=== PATIENT | male | born 1960 | race Caucasian/White ===

== ENCOUNTER 2018-05-05 09:45 | Inpatient (IN) ==
[~2018-05-05 09:45] MED LIST: Bacitracin 50,000 UNIT, Polymyxin B Sulfate 500,000 UNIT, Sodium Chloride IRRigation 1,... IR ONE; Vancomycin 1,750 MG in 0.9 % Sodium Chloride 250 ML IVPB ONE
[2018-05-05] MEDS ORDERED: Ringers Solution, Lactated 1,000 ML IVC SCH (10:15)
--- NOTE | 2018-05-05 10:18 | Anesthesia Evaluation PreOp ---
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 HX Other Medical History: Hepatic (hepatitis--unsure of type) Anesthesia History: No Prior Anesthetic Complications, Past Anesthesia Alcohol Use: heavy (2-5 beers daily) Drug use: none Medications and Allergies Diclofenac Sodium [Voltaren] 1 appl TP QID PRN 05/05/18 [History] Gabapentin 1,200 mg PO BID 05/05/18 [History] Gabapentin 600 mg PO QAM 05/05/18 [History] Naproxen Sodium [Aleve] 220 mg PO Q12H PRN 05/05/18 [History] OxyCODONE/APAP 5/325 [Percocet 5/325 MG] 1 tab PO Q8HR PRN 05/05/18 [History] Allergy/AdvReac Type Severity Reaction Status Date / Time Bee Pollen Allergy Anaphylaxis Verified 04/28/18 15:22 - Meds/Allergy Pre-op Review Medications Reviewed: Yes Allergies Reviewed: Yes Beta Blockers on Current Med List: No Anesthesia Results - Labs Laboratory Tests 04/25/18 04/25/18 04/25/18 10:58 10:58 10:58 WBC 9.3 Hgb 14.4 Hct 43.7 Plt Count 235 PT 9.7 INR 0.9 APTT 33.1 Sodium 138 Potassium 4.1 BUN 16 Creatinine 0.82 - Imaging EKG: report reviewed (04/25/2018 SINUS RHYTHM WITH OCCASIONAL VENTRICULAR PREMATURE COMPLEXES POSSIBLE RIGHT VENTRICULAR CONDUCTION DELAY ST DEVIATION AND MODERATE T-WAVE ABNORMALITY, CONSIDER ANTEROLATERAL ISCHEMIA) Anesthesia Exam O2 Sat Height 1.8 m Weight 108.409 kg O2 Sat by Pulse Oximetry 98 Vital Signs Temp Pulse Resp BP Pulse Ox 98.5 F 71 18 144/86 98 05/05/18 10:05 05/05/18 10:05 05/05/18 10:05 05/05/18 10:05 05/05/18 10:05 Height: 5'11'' Weight: 239 lbs NPO (# of Hours): 8 Pain Scale: 0 Pain Scale Used: Numeric (1 - 10) - HEENT Pupil (Motor): EOMI Mallampati: II Teeth: Edentulous Oral Opening: Greater than 3 - 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
[2018-05-05] MEDS ORDERED: *HR* FentaNYL (PF) 100 MCG/2 ML VIAL ONE (10:31)
[2018-05-05] MEDS ORDERED: *HR* Midazolam HCl 2 MG/2 ML VIAL ONE ×2 (10:31→12:04)
[2018-05-05] MEDS ORDERED: Heparin 1,000 UNITS/500 mL 500 ML ONE (10:32)
[2018-05-05] MEDS ORDERED: Ondansetron 4 MG/2 ML VIAL ONE (10:32)
[2018-05-05] MEDS ORDERED: *HR* Propofol 200 MG/20 ML VIAL IVP ONE ×3 (10:32→15:17)
[2018-05-05] MEDS ORDERED: *HR* Succinylcholine 200 MG/10 ML VIAL IVP ONE (10:32)
[2018-05-05] MEDS ORDERED: Propofol 500 MG/50 ML INFUS..BTL ONE (10:32)
[2018-05-05] MEDS ORDERED: Lidocaine -MPF 2% 2 ML VIAL ONE (10:32)
[2018-05-05] MEDS ORDERED: Dexamethasone 4 MG/ML VIAL ONE (10:32)
[2018-05-05] MEDS ORDERED: *HR* Remifentanil 1 MG VIAL IVP ONE (10:33)
[2018-05-05] MEDS ORDERED: *HR* Phenylephrine 10 MG/ML VIAL ONE (10:33)
[2018-05-05] MEDS ORDERED: *HR* HYDROmorphone (PF) 1 MG/ML SYRINGE IVP PRN (10:53)
[2018-05-05] MEDS ORDERED: Ondansetron 4 MG/2 ML VIAL IVP ONE (10:53)
[2018-05-05] MEDS ORDERED: *HR* OxyCODONE Immed Rel 5 MG TABLET PO PRN (10:53)
[2018-05-05] MEDS ORDERED: *HR* Promethazine 25 MG/ML VIAL IVP PRN (10:53)
--- NOTE | 2018-05-05 11:42 | History & Physical Report ---
Date of Encounter: 05/05/18 Time of Encounter: 11:41 24 Hour HP Update - Instructions Instructions: If the History and Physical is less than 30 days old and was completed prior to A.M. admission and or procedure and has NOT been updated on calendar day of procedure please complete this update prior to performing procedure. - Update Patient reports changes in Medical Condition: No Changes in examination, assessment, or condition: No Changes in Medication: No Preop tests/diagnostics Reviewed: Yes Pre-Op MRSA Screen: Negative Surgery Remains Indicated: Yes Consent for Planned Operative Procedure(s) Verified: Yes - Pre-Operative Checklist Preoperative Checklist Indicated: No Prophylactic Antibiotic Ordered: Yes Home Medications Include Beta Ana: No Beta Ana Taken Today (Day of Surgery): No Beta Ana Taken Yesterday (Day Prior to Surgery): No Is VTE Prophylaxis Indicated?: Yes
[2018-05-05] MEDS ORDERED: *HR* HYDROMORPHONE 2 MG/ML VIAL ONE (15:12)
--- NOTE | 2018-05-05 15:29 | Orthopedic Operative Note ---
Date of procedure: 05/05/18 Pre-op diagnosis: Cervical stenosis, cervical radiculopathy, motor deficit Post-op diagnosis: same Operation/Findings: Corpectomy C6, cervical fusion C5-C7: The patient was brought to the operating room and placed supine on the operating room table. Successful general endotracheal anesthesia intubation was performed. Neurophysiologic monitoring personnel placed leads on the upper and lower extremities as well as the cranium for EMG monitoring purposes. Appropriate baseline potentials were noted by the neurophysiologic monitoring staff. Penn catheter was placed prior to positioning. Compression boots and stockings were placed for deep vein thrombosis prophylaxis. Padding was also placed all bony prominences including the ulnar nerve near the medial epicondyles of the elbows were appropriately padded. Mild traction was placed on the bilateral shoulders and taped into place. Preoperative antibiotics were administered. The area from the mandible bilaterally to the upper thoraces was prepped and draped in the usual sterile fashion. A transverse incision was made at the level of the cricoid cartilage which is approximately 3 cm in length and extended from the midline of the cervical spine laterally towards the sternocleidomastoid muscle on the left. We then performed standard medial approach to the carotid sheath. Sponges were used to tease the fascial medial to the sternocleidomastoid muscle while carefully controlling and palpating the carotid artery. Using careful dissection we were able to get to the level of the anterior vertebral bodies and longus coli muscles. The spinal needle was placed at the appropriate C6-7 level, and intraoperative radiograph was obtained which was a cervical spine lateral radiograph. The needle and radiograph confirmed we were at the correct operative level. We further exposed this level by using Bovie cautery under the medial edge of the longus colli muscles to allow them to be retracted approximately 2 mm laterally on each side. An 11 blade was used to perform anterior discectomy at the appropriate C6-7 level after an initial annulotomy of the anterior longitudinal ligament and annulus was performed. Further disc material was removed with pituitary Rongeurs. Subsequently, Synthes pins were placed at the C6 and C7 vertebral bodies respectively to provide distraction. We then used a Trimline cervical retractor which was placed in both medial and lateral as well as inferior superior direction to allow full visualization of the appropriate C6-7 disc and C6 and C7 vertebral bodies. The Leica microscope was brought to the field and the remainder of the procedure was performed under the guidance of this microscope. Using pituitary rongeurs and small curettes, various micro-instruments, a full discectomy was performed at the appropriate C6-C7 level. The posterior longitudinal ligament was encountered and appeared partially calcified. A portion of this ligament was removed. After complete and thorough discectomy and removal of spondylitic material was performed the endplates of the vertebral bodies were prepared with a bur until allow bleeding of cancellous bone. . We then turned our attention to the C5-6 level where a similar series of procedures was performed including discectomy, removal of spondylitic material, and end plate preparation. This left the C5-6 and C6-7 levels decompressed all the way back to the posterior longitudinal ligament portions of which were removed. This left intervening C6 vertebral body bone. We used rongeurs and various instruments to remove C6 vertebral body bone. This autograft bone was saved for later use. After the corpectomy of C6 was complete, this left the inferior endplate of C5 decompressed to the posterior longitudinal ligament all the way to the superior endplate of C7. We measured the intervening space between C5 and C7 and measured with calipers. We then selected the appropriate size interbody cage ( X-Pand, [employer]) and packed this with autograft bone. The interbody cage was carefully placed within the C5-C7 interspace and expanded appropriately until it was engaging the endplates of C5 and C7. Lateral fluorographic views confirm satisfactory position of the interbody cage and graft. A cervical plate was then placed on the anterior aspect of the C5, C6, and C7 vertebral bodies. The plate was placed in the midline position after drilling four 13 mm self tapping screws and inserting them. They were locked in place using standard Venture plate maneuvers. At this point a lateral radiograph of the cervical spine was obtained and showed satisfactory position of the graft and plate. The wound was copiously irrigated and bleeders encountered were cauterized using Bovie cautery. Platysma was closed with interrupted 2-0 Vicryl sutures. Running 3-0 Monocryl suture was used for skin closure. Sterile dressing was placed over the neck wound. A cervical collar was placed. The patient was transferred to a hospital bed and extubated. The patient was noted to be fully motor and sensory intact in the recovery room at the end of the procedure. The medications. All sponge instrument and needle counts were correct at the end of the procedure. Anesthesia: GETA Surgeon: Elder Crews Jr Was there an assistant corporation counsel present: No Estimated blood loss (cc): 20 Specimen: None Condition: stable Disposition: PACU
[2018-05-05] MEDS ORDERED: *HR* HYDROcodone/Acet 5/325 mg TABLET PO PRN (16:29)
[2018-05-05] MEDS ORDERED: Ondansetron 4 MG/2 ML VIAL IVP PRN (16:29)
[2018-05-05] MEDS ORDERED: Acetaminophen 325 MG TABLET PO PRN (16:29)
[2018-05-05] MEDS ORDERED: Naloxone 0.4 MG/ML INJ IVP PRN (16:29)
--- NOTE | 2018-05-05 16:34 | Anesthesia Evaluation Post Op ---
Date of Encounter: 05/05/18 Time of Encounter: 16:33 - Vital Signs Vital Signs: Last Vital Signs Temp 98.1 F 05/05/18 16:07 Pulse 84 05/05/18 16:07 Resp 16 05/05/18 16:07 BP 143/97 05/05/18 16:07 Pulse Ox 95 05/05/18 16:07 - Lungs Lungs: Clear Ascult./Percussion - Airway Airway: Non-obstructed - Cardiovascular Regular Rate - Mental Status Mental Status: Alert & Oriented, Answers Appropriately - Pain Pain Scale: 1 - Nausea Vomiting Nausea Vomiting: Not Present - Hydration Hydration: NPO - Discharge PostOp Status: Transfer Patient to floor
[2018-05-05] MEDS: *HR* OxyCODONE Immed Rel 5 MG TABLET PO PRN (19:57)
[2018-05-05] MEDS: Ringers Solution, Lactated 1,000 ML IVC SCH (19:57)
[2018-05-06] MEDS: *HR* OxyCODONE Immed Rel 5 MG TABLET PO PRN (02:44)
[2018-05-06] MEDS: Ringers Solution, Lactated 1,000 ML IVC SCH (05:16)
--- NOTE | 2018-05-06 08:54 | Discharge Summary ---
Date of Encounter: 05/06/18 Time of Encounter: 08:52 - Discharge Diagnosis (1) Cervical spinal stenosis Priority: Primary Status: Chronic (2) Cervical radiculopathy Priority: Primary Status: Chronic (3) Focal motor deficit Priority: Primary Status: Chronic (4) Status post cervical spinal fusion Priority: Primary Status: Acute - Hospital Course Hospital course: Mr. Ferguson is a 57 year old male Date of procedure: 05/05/18 Pre-op diagnosis: Cervical stenosis, cervical radiculopathy, motor deficit Post-op diagnosis: same Operation/Findings: Corpectomy C6, cervical fusion C5-C7 The patient had an uneventful postoperative course. Patient case reviewed with Dr. Crews. Progressed from intravenous analgesic needs to oral analgesic needs only. Remained neurovascularly intact and mobilized satisfactorily. All intraoperative and/or postoperative radiographic studies were satisfactory. Patient is discharged with plan for rehabilitation and follow-up in 2 weeks post discharge on analgesic medication and patient's home medications. - Time Spent with Patient Total time spent providing and/or coordinating discharge services: - Discharge Medications Prescriptions: RX: OxyCODONE Immed Rel [Roxicodone 5 MG] 5 mg PO Q6HR PRN 7 Days #28 tablet PRN Reason: Severe Pain RX: Docusate Sodium [Colace] 100 mg PO BID 5 Days #10 capsule Home Medications: RX: Diclofenac Sodium [Voltaren] 1 appl TP QID PRN 05/05/18 [History] RX: Gabapentin 1,200 mg PO BID 05/05/18 [History] RX: Gabapentin 600 mg PO QAM 05/05/18 [History] RX: Docusate Sodium [Colace] 100 mg PO BID 5 Days #10 capsule 05/06/18 [Rx] RX: OxyCODONE Immed Rel [Roxicodone 5 MG] 5 mg PO Q6HR PRN 7 Days #28 tablet 05/06/18 [Rx] Allergies/Adverse Reactions: Allergy/AdvReac Type Severity Reaction Status Date / Time Bee Pollen Allergy Anaphylaxis Verified 04/28/18 15:22 Date of admission: 05/05/18 16:33 Primary care physician: Jennifer Mcdonald CNP Consults: 05/05/18 16:29 Consult to Occupational Therapy [CONS] Routine Comment: Evaluate, develop and implement POC Reason for Consult: Postoperative rehabilitation Does patient have active BEDREST order?: No Is patient medically & hemodynamically stable?: Yes Patient assessed for mobility or mobilized this visit?: No Consult to Physical Therapy [CONS] Routine Comment: Evaluate, develop and implement POC Reason for Consult: Postoperative rehabilitation Does patient have active BEDREST order?: No Is patient medically & hemodynamically stable?: Yes Patient assessed for mobility or mobilized this visit?: No Consult to Spine Navigator [CONS] [CONS] Routine Discharging clinician: Elder Crews Jr Anticipated date of discharge: 05/06/18 - VTE Documentation of Mechanical Device: Intermittent pneumatic compression device - Impressions ITS Impressions Cervical Spine X-Ray 05/05/18 00:00 IMPRESSION: Intraprocedural fluoroscopic spot images as above. See separate procedure report for more information. D/ / Ld Boroks MD / Ld Brooks MD Interpreting Provider: Ld Brooks MD Fluoroscopy 05/05/18 00:00 IMPRESSION: Intraprocedural fluoroscopic spot images as above. See separate procedure report for more information. D/ / Ld Brooks MD / Ld Brooks MD Interpreting Provider: Ld Brooks MD Cervical Spine X-Ray 05/06/18 08:29 IMPRESSION: Satisfactory postoperative appearance of C5 through C7 fusion. D/ / Louie Diaz MD / Louie Diaz MD Interpreting Provider: Louie Diaz MD - Patient Status Disposition: Home, Self-Care Condition: Good Functional capacity at discharge: uses cane/walker Overall status at discharge: patient is progressing back to baseline - Discharge Instructions Follow Up With: Flavia Lawrence PAC [Physician Appeals And Generalist Clerk] - 05/20/18 2:15 pm Elder Crews Jr, MD [Partnered Physician] - 08/07/18 11:15 am Jennifer Mcdonald, HEDIS NURSE [Primary Care Provider] - Additional Instructions: Discharge Instructions: Cervical Please call [facility] ([phone]), your Primary Care Physician, or report to the ER if you have any of the following symptoms: Fever greater that 101.5, increased pain/redness/drainage/odor for your incision site or any other concerning symptoms. ACTIVITY * May Shower * No Tub Baths * No Smoking * No Swimming * No Driving * Wear Collar when up walking * Incentive Spirometer 10 times an hour MEDICATIONS: Upon discharge resume your home medications. Take all the medications as prescribed. Take a stool softener if taking narcotic pain medications. Stool softeners are only effective if you drink enough fluids. Drink 6-8 glass of water or fluids a day, unless this is not allowed for another health problem. Despite using stool softeners, if you haven't had a bowel movement in 3 days, please switch to a gentle laxative. Gentle laxatives are sold over the counter. You should have a bowel movement within 24 hours, if not call the office. You will be discharged from the hospital with a prescription for pain medication. You are encouraged to decrease the use of narcotic pain medication as tolerated. Should you require a refill, please call the office. It is best to call 48-72 hours in advance of needing a prescription refill so you don't run out of medication. WOUND CARE: Leave steri-strips in place until they fall off on their own. Pat dry when you get out of the shower. FOLLOW-UP: Please follow up with your surgeon in the orthopedic clinic in 2 weeks from the day of surgery. References: [employer] ([email or web address]) - Diet and Activity Activity: as per physical therapy Diet: advance to your usual diet
[2018-05-06] MEDS ORDERED: tiZANidine 4 MG TABLET PO PRN (10:40)
[2018-05-06 14:49] VITALS: BP 175/84
== END 2018-05-06 18:00 | disposition home or self-care (01) | DRG 473 ==
LOC: SAMDAY 09:45 → 3NENU 16:33
PROVIDERS: ADMIT Orthopaedic Surgery Orthopaedic Surgery of the Spine; ATTEND Orthopaedic Surgery Orthopaedic Surgery of the Spine
PROC: SPICORP (2018-05-05 12:05)